=== PATIENT | female | born 1955 | race African-American/Black ===

== ENCOUNTER → 2020-08-10 10:33 | Outpatient (CLI) | payer MEDICARE, SELFPAY ==
--- NOTE | ~2020-08-10 | MM_ITS ---
EXAMINATION: MM screening stephan BI w vishnu HISTORY: Screening TECHNIQUE: Craniocaudal and mediolateral oblique 3-D tomosynthesis images were obtained and synthetic 2-D images were generated. CAD analysis was submitted and interpreted. COMPARISON: 07/25/2027 BREAST PARENCHYMAL COMPOSITION: The breasts are heterogeneously dense, which may obscure small masses . FINDINGS: There is no evidence of suspicious mass, calcification, or architectural distortion to sugg est malignancy in either breast. There has been no suspicious interval change. IMPRESSION: 1. No mammographic evidence of malignancy. 2. Recommend routine screening mammography in one year. BI-RADS Category 1: Negative Reviewed, dictated and finalized at location A.
== END ==
PROVIDERS: Visit Provider Obstetrics & Gynecology
DX: Z12.31 Encounter for screening mammogram for malignant neoplasm of breast (principal)
CPT/HCPCS: 77063; 77067

== ENCOUNTER 2023-01-28 00:42 | Day surgery (SDC) | payer MEDICARE, SELFPAY ==
--- NOTE | 2023-01-21 12:56 | PC.NURSE ---
Report to the Outpatient Waiting Room, entrance under the green pavilion located off [facility], at time _1000 on date __01/28/23 . Planned Procedure Time: _1200 . Time changes happen often and if your time is changed the preop area will call you the afternoon before. - You and your visitor will be asked to self-screen and do not enter if you have any COVID symptoms. - A mask is optional within the hospital at this time. Patients may have clear liquids (water, carbonated beverages, clear teas, apple juice) until 3 hours prior to surgery with a maximum of 20 ounces. - No food from midnight until time of surgery - Infants may have breast milk until 4 hours before surgery, infant formula 6 hours prior to surgery. - Children will be allowed to drink immediately following surgery. If applicable, please bring a bottle or sippy cup to assist with drinking. Juice, water, soda, and popsicles are readily available. For infants on formula, please bring formula the day of surgery. Pacifiers are allowed. Take the following medications with a SIP of water the morning of surgery: NONE DO NOT STOP ANY OF YOUR OTHER PRESCRIPTION MEDICATIONS PRIOR TO SURGERY ?EXCEPT THE FOLLOWING Medications to discontinue per physician ALL VITAMINS AND SUPPLEMENTS 3 DAYS PRE OP.LAST DOSE 01/24/23 Please no make-up, nail japanese, hairspray, perfume, deodorant, or body powder the day of surgery. No jewelry (including any body piercings) or valuables the day of surgery, leave them at home. Please take a shower or bath the night before, or the morning of, surgery with an antibacterial soap. Wear comfortable, loose fitting clothing. Children are encouraged to wear pajamas. - Jewelry must be removed prior to entering the operating room. Rings and piercings that are not removed may be cut off. - The hospital will not accept responsibility for valuables. - Please leave all valuables, including medications, at home the day of surgery. If you are going home after surgery, a licensed rolloff truck driver must drive you home. - NO public transportation without another adult if you receive anesthesia. - We recommend that an adult stay with you for 24 hours following discharge. - We also recommend that you do not drive, make important decision, drink alcoholic beverages, or take any drugs that were not prescribed by your health care provider for at least 24 hours after your discharge time. For Pediatric surgeries, we recommend two adults accompany the child home. Follow any additional instructions given to you from your surgeon. If you or anyone in your household have experienced Covid symptoms in the past week, please notify your surgeon or the nurse liaison at the phone number below for possible testing. Telephone instructions given to _PATIENT and asked if any additional questions and then verbalized understanding. Patient advised to call surgeon office or pre surgery nurse liaison [phone] if any additional questions.
[2023-01-21 13:00] VITALS: BMI 22.4
--- NOTE | 2023-01-28 07:41 | P.HP_ITS ---
History of Present Illness History of Present Illness Consent: Risks, benefits, and alternatives have been discussed and questions answered. Patient agrees to proceed with procedure. Chief complaint: Thickened Endometrial Lining Narrative: Kim Denny is a 67 year old female who underwent CT scan secondary to kidney stones. Incidental finding of a abnormal uterus by CT scan. Pelvic ultrasound was performed and showed multiple uterine fibroids however the endometrial complex measures 5mm in thickness. It was recommended to undergo D&C hysteroscopy for evaluation the thickened endometrium. Patient denies vaginal bleeding. Risks of procedure including infection bleeding, perforation, and possible pathology are reviewed. Patient voices understanding and agrees to proceed. Review of Systems Review of Systems: not repeated day of surgery; patient states no changes in status PMFSH Past Medical History Medical History (Updated 01/28/23 @ 07:46 by Delaney Coronado MD) Cluster headache Deafness in left ear History of seizures Kidney stone (normal spontaneous vaginal delivery) X2 Surgical History Surgical History (Updated 01/28/23 @ 07:46 by Delaney Coronado MD) H/O lithotripsy 2022 History of bilateral tubal ligation History of X1 History of D&C 1976 History of hysteroscopy 2013 Social History Social History (Updated 05/30/20 @ 09:35 by Rebecca Arroyo CMA) Smoking status: Never smoker Second hand tobacco smoke exposure: No Alcohol intake: never Substance use: never Substance use type: does not use Living arrangements: with family Spiritual care concerns: No Meds Home Medications and Allergies Home Medications Medication Instructions Recorded Confirmed Type ascorbate calcium (vitamin C) 500 1,000 mg PO DAILY 05/30/20 01/21/23 History mg tablet cholecalciferol (vitamin D3) 125 125 mcg PO DAILY 10/26/22 01/21/23 History mcg (5,000 unit) capsule potassium 99 mg tablet 99 mg PO DAILY 10/26/22 01/21/23 History Allergies Allergy/AdvReac Type Severity Reaction Status Date / Time No Known Allergies Allergy Unknown Verified 01/21/23 12:50 Exam Const: General: healthy appearing and alert Orientation/consciousness: patient oriented x3 Resp: Effort & Inspection: normal respiratory effort GI: GI Palp: Yes Soft to palpation, No Tenderness to palpation present (GI) and No Palpable mass present : External Female Exam: normal external appearance Speculum Exam - Vagina: normal appearance of the vagina and normal vaginal discharge Speculum Exam - Cervix: normal appearance of the cervix Bimanual exam- vagina & uteru s: uterine size normal and consistency normal Bimanual Exam- Adnexa, other: normal adnexae and No adnexal tenderness Neuro: General: patient oriented x3 Assessment and Plan Assessment and plan (1) Thickened endometrium: Code(s): R93.89 - Abnormal findings on diagnostic imaging of other specified body structures Status: Acute Assessment and Plan: Plan to proceed with D&C hysteroscopy
--- NOTE | 2023-01-28 07:41 | WPDHPUPDATE1 ---
History and Physical Update Update Date/Time: 01/28/23 07:41 History and Physical has been reviewed, including an updated exam of the patient. There are NO changes in the patient's condition. Risks, benefits, and alternatives have been discussed and questions answered. Patient agrees to proceed with procedure.
--- NOTE | 2023-01-28 10:35 | WPDANESEPPF ---
Anes - Initial Pre Proc Eval Procedure: Operation Date: 01/28/23 12:00 Proposed Procedures p Hysteroscopy Dilation and Curettage - Delaney Coronado MD Date/Time: 01/28/23 10:35 Surgeon: Delaney Coronado MD Pre Op Diagnosis: Thickened Endometrial Lining Patient Data Age: 67 Gender: F Height: 1.63 m Weight: 59.45 kg Allergies Allergy/AdvReac Type Severity Reaction Status Date / Time No Known Allergies Allergy Unknown Verified 01/21/23 12:50 Home Medications Medication Instructions Recorded Confirmed Type ascorbate calcium (vitamin C) 500 1,000 mg PO DAILY 05/30/20 01/21/23 History mg tablet cholecalciferol (vitamin D3) 125 125 mcg PO DAILY 10/26/22 01/21/23 History mcg (5,000 unit) capsule potassium 99 mg tablet 99 mg PO DAILY 10/26/22 01/21/23 History Patient hx anesthesia problems: none Family hx anesthesia problems: none Results Review: All pre-operative results and documents have been reviewed as part of the pre-operative evaluation. [facility] Past Medical History Medical History Cluster headache Deafness in left ear History of seizures Kidney stone (normal spontaneous vaginal delivery) X2 Surgical History Surgical History H/O lithotripsy 2022 History of bilateral tubal ligation History of X1 History of D&C 1976 History of hysteroscopy 2013 Social History Social History Smoking status: Never smoker Second hand tobacco smoke exposure: No Alcohol intake: never Substance use: never Substance use type: does not use Living arrangements: with family Spiritual care concerns: No Anes - Eval Final PreProcedure Day of Procedure 01/28/23 10:35 Patient weight: normal Heart: regular rate and rhythm Lungs: clear to auscultation Airway: Mallampati scale class II Neurological: alert and oriented Last oral intake: >/= 8 hours ASA classification: II Emergent: no Anesthetic plan: proceed Anesthesia type and monitoring: general GIVS and standard monitoring Results Review: All pre-operative results and documents have been reviewed as part of the pre-operative evaluation. Informed Consent: The patient's anesthetic plan and its attendant risks and benefits were discussed with the patient/family/POA. Questions were solicited and answers provided to the satisfaction of the patient/family/POA.
[2023-01-28 11:00] VITALS: BP 179/92; PULSE 90; RESP 16; TEMP 36.6; O2SAT 98
[2023-01-28] MEDS: LACTATED RINGERS 1,000 ML 30 ML IV CONT (11:00)
[2023-01-28] MEDS: ACETAMINOPHEN 500 MG TABLET 1000 MG PO (11:53)
[2023-01-28 12:10] VITALS: BP 140/73; PULSE 66; RESP 16; O2SAT 100
--- NOTE | 2023-01-28 12:10 | P.OP_ITS ---
Procedure Note - Detailed Date of Procedure 01/28/23 Pre-op Diagnosis Thickened Endometrial Lining Post-op Diagnosis Same Procedure Performed D&C hysteroscopy Surgeon Delaney Coronado MD Anesthesia MAC Findings The cervix is very stenotic. The uterus sounds to 6cm and appears very atrophic. Description of Procedure The patient is taken to the operating room and placed under anesthesia in the dorsal lithotomy position. She was prepped and draped in usual sterile fashion. Connelly speculum was placed in the vagina and the cervix grasped on the anterior lip with a tenaculum. The uterus was attempted to be sounded the internal stenosis of the cervix is noted. The Hegar dilators are used and the cervix serially dilated to a 6 Hegar. The uterus is then sounded to 6cm. The diagnostic hysteroscope was placed and through hydro dissection the cervix is dilated until the cavity is entered. No abnormalities are noted and the hysteroscope was removed. The sharp curette is used to curette the endometrium until a good uterine cry was noted in all areas. Minimal material was obtained consistent with the atrophic appearance. All instruments are removed. Sponge, needle, and instrument counts are correct per the OR staff. The patient is awakened from anesthesia and taken to recovery in stable condition. Estimated Blood Loss 5 Drains No Packing No Pathology Yes (Endometrial curettings) Complications No immediate complications Condition Stable Disposition PACU
[2023-01-28 12:40] VITALS: BP 140/73; PULSE 66; RESP 20
[2023-01-28 13:10] VITALS: BP 130/71; PULSE 81; RESP 20
== END 2023-01-28 13:22 | disposition home or self-care (01) ==
PROVIDERS: Visit Provider Obstetrics & Gynecology Gynecology
PROC: 0U5B8ZZ Destruction of Endometrium, Via Natural or Artificial Opening Endoscopic (ICD-10-PCS; CPT 58563; principal; 2023-01-28 12:00)
DX: N85.8 Other specified noninflammatory disorders of uterus (principal)
CPT/HCPCS: 58558; 88305; A9270; J2250; J2704; J3010; J7120